=== PATIENT | male | born 2000 | race African-American/Black ===

== ENCOUNTER 2021-10-03 22:44 | Emergency (ER) | payer OTHER, SELFPAY ==
[2021-10-03] MEDS ORDERED: methylPREDNISolone Sod Succ/PF 125 MG/2 ML VIAL ONE (22:59)
[2021-10-03] MEDS ORDERED: diphenhydrAMINE 50 MG/ML VIAL ONE (22:59)
[2021-10-03] MEDS ORDERED: Famotidine/PF 20 mg/2ml Vial ONE (22:59)
== END 2021-10-03 22:50 | disposition home or self-care (01) ==
LOC: NAV ERS 22:44
DX: T78.1XXA Other adverse food reactions, not elsewhere classified, initial encounter (principal); L50.0 Allergic urticaria
CPT/HCPCS: 96374; 96375; J1200; J2930; S0028